=== PATIENT | male | born 1960 | race Caucasian/White ===

== ENCOUNTER 2024-05-19 08:22 | Inpatient (IN) | payer BC, SELFPAY ==
[2024-05-19] VITALS (12 sets, daily range): BP systolic 135–213; BP diastolic 72–111; BMI 26.6
[2024-05-19 05:19] LABS: % Basophils 0.3 % (0-2); % Immature Granulocytes 0.3 % (0-0.5); % Lymphocytes 14.4 % (20.5-51.1); % Monocytes 12.6 % (1.7-9.3); % Neutrophils 69.4 % (42.2-75.2); Absolute Eosinophils 0.3 10^3/uL (0-0.7); Absolute Lymphocytes 1.3 10^3/uL (1.2-3.4); Absolute Monocytes 1.1 10^3/uL (0.1-0.6); Absolute Neutrophils 6.1 10^3/uL (1.4-6.5); Hematocrit 43.7 % (39.0-52.0); Hemoglobin 15.7 g/dL (13.0-18.0); Mean Corp Hgb Conc. 35.9 g/dL (33.0-37.0); Mean Corpuscular Hgb 30.5 pg (27.0-31.0); Mean Corpuscular Volume 84.9 fL (80.0-94.0); Mean Platelet Volume 9.3 fL (7.4-10.4); Nucleated Red Blood Cells % 0 % (-); Platelet Count 335 10^3/uL (130-400); Red Blood Cell Count 5.15 10^6/uL (4.70-6.10); Red Cell Dist. Width 12.6 % (11.5-14.5); White Blood Cell Count 8.8 10^3/uL (4.8-10.8)
--- NOTE | 2024-05-19 05:29 | ED.GENMED ---
History of Present Illness
<Devan Holbrook DO - Last Filed: 05/27/24 12:54>
General
Chief Complaint: Chest Pain
Source: patient
Exam Limitations: none
Time Seen by Provider: 05/19/24 05:09
History of Present Illness
History of Present Illness:
63-year-old male with history of hypertension who presents with concerns about his blood pressure being elevated as well as chest pain. He states chest pain started around 7 PM. He first hours of abdominal pain through the day but felt it was
related to drinking root beer that was out in the sun all day. His chest pain he states he has had for many years but this episodes around 7 PM. The pain seems to be constant but does seem to wax and wane a bit. The patient also reports that he
has been checking his blood pressure at home and has been high as 240 systolic. Patient states he checks it almost every hour. The pain does not radiate at all and states that his left chest. Denies shortness of breath. No palpitations. No leg
swelling. No headache or vision changes. His PCP recently started hydrochlorothiazide but then added losartan about a week ago but he has not filled it because he is scared of taking medicines. He has been trying more natural remedies and has not
taken the losartan.
Past History
<DO Julia Bran Last Filed: 05/27/24 12:54>
Past History
ED Past Medical History: HTN
ED Past Surgical History: Orthopedic
Phy Exam
<Devan Holbrook DO - Last Filed: 05/27/24 12:54>
Physical Exam
Physical Exam:
CONSTITUTIONAL Patient alert and oriented to person, place and time. Well-appearing. Vital signs reviewed. Blood pressure 189/111 on exam
HEAD atraumatic, normocephalic.
EYES eyelids normal to inspection, Pupils equally round and reactive to light, Extraocular muscles intact, Conjunctiva normal, Sclera normal.
NECK normal range of motion, Trachea midline, no jugular venous distention.
RESPIRATORY CHEST No respiratory distress noted, Chest expansion equal, Bilateral breath sounds clear.
CARDIOVASCULAR regular rate and rhythm, Heart sounds normal.
ABDOMEN abdomen nontender, Bowel sounds normal. No distention.
BACK normal inspection, no obvious deformities
UPPER EXTREMITY range of motion normal, Motor strength normal, no cyanosis, no edema.
LOWER EXTREMITY range of motion normal, Motor strength normal, no cyanosis, no edema.
NEURO Speech normal, No focal motor deficits, [place] coma scale 15, Memory normal, Cranial Nerves intact to screening exam.
SKIN skin warm, dry, and normal in color.
PSYCHIATRIC patient oriented to person place and time, Normal affect.
Scores
<DO Julia Bran Last Filed: 05/27/24 12:54>
Heart Score for Chest Pain Patients
STEMI patient?: Not applicable
Course
<DO Julia Bran Last Filed: 05/27/24 12:54>
Orders/Labs/Results
Orders:
Orders
05/19/24 04:44
Electrocardiogram (*1) Urgent
Reason for Study: Chest Pain
EKG- Treatment ONCE
05/19/24 05:06
Cardiac Monitoring- Treatment ONCE
IV Insert/Care/Rem.- Treatment PRN
05/19/24 05:10
Complete Blood Count/With Diff Urgent
Comprehensive Metabolic Panel Urgent
Direct Bilirubin Urgent
Comment: ADD
Lipase Urgent
Comment: ADD ON
Troponin I Urgent
05/19/24 05:28
Labetalol HCl [Trandate] 10 mg IV NOW STA
CR Chest - 2 Views Urgent
Comment:
Reason For Exam: cp, HTN
05/19/24 05:32
Electrocardiogram (*1) Urgent
Reason for Study: Chest Pain
EKG- Treatment ONCE
05/19/24 05:36
CT Abd/pelvis W Iv Cont Urgent
Comment:
Reason For Exam: mid abd pain, uncontrolled HTN, elevated LFTs
05/19/24 05:56
Labetalol [Trandate] 100 mg PO NOW STA
05/19/24 06:38
Add On- LAB Urgent
Tests Added?: lipase
05/19/24 07:53
Admit/Transfer Patient As Directed
Co-Sign Provider:
Level of Care: Inpatient admission
Assign to:: Telemetry
Physician / Group: Dr Bernal
Diagnosis: choledocholithiasis and htn urgency
Reason for Telemetry: Arrhythmia
Date to Stop Telemetry: 05/22/24
Time to Stop Telemetry: 11:00
Reason for Hospitalization: pte p/w abd pain and elevated lft and uncontrolled htn
Expected length of stay greater than two midnights?: Yes
ELOS- Estimated Length of Stay in days: 2
I certify the patient meets the requirements for IP care: Yes
PRN Pain Medication Management As Directed
May give lesser potent ordered pain med per pt: Yes
preference::
Protocol:: Medication orders for pain may be administered in a
manner that supports deferring to patient preference
when the pt is:
- Requesting an ordered lesser potent pain medication.
Least to most potent pain medications are defined
as: acetaminophen < NSAID < tramadol < opioids
(morphine, oxycodone, hydromorphone).
- Requesting a lesser dose of the same medication IF
ORDERED.
- Requesting a less intrusive route of administration
if both routes are prescribed by the provider (PO <
IV).
05/19/24 07:55
Code Status As Directed
Resuscitation Status: Full Code
05/19/24 08:01
GASTROINTESTINAL CONSULT Routine
Consulting Provider: Arturo Sofia
Was physician already notified: Yes
Reason for consult: Elevated LFT
05/19/24 08:56
Troponin I Urgent
05/19/24 09:05
0.9% Sodium Chloride 1000 ml [Nss] 1,000 ml IV 75 mls/hr
Amlodipine [Norvasc] 5 mg PO DAILY
Bisacodyl [Dulcolax] 10 mg RECTAL [id number] PRN
Docusate W/Senna [Senokot-S] 1 tablet PO BIDPRN PRN
Famotidine [Pepcid] 20 mg PO DAILY
HydrALAZINE [Apresoline] 10 mg IV Q6HPRN PRN
Ketorolac [Toradol] 10 mg IV Q6HPRN PRN
Polyethylene Glycol Powder [Miralax] 17 grams PO DAILYPRN PRN
05/19/24 09:05
Activity As Directed
Activity Level: Out of Bed-Early Mobility
Vital Signs As Directed
Frequency: Per unit guidelines
DX Deep Vein Thrombosis Video Routine
05/19/24 18:00
Enoxaparin Sodium [Lovenox] 40 mg SC QPM
05/20/24 06:21
Complete Blood Count/With Diff IN AM
Comprehensive Metabolic Panel IN AM
05/22/24 11:00
DC Protocol for Telemetry ONCE
Abnormal Lab Results
05/19/24
05:10
Absolute Monos (auto) 1.1 H 10^3/uL
(0.1-0.6)
Lymphocytes % 14.4 L %
(20.5-51.1)
Monocytes % 12.6 H %
(1.7-9.3)
Glucose 126 H mg/dl
(70-99)
Total Bilirubin 3.6 H mg/dl
(0.2-1.3)
Direct Bilirubin 2.2 H mg/dl
(0.0-0.4)
AST 296 H U/L
(17-59)
ALT 306 H U/L
(0-50)
Alkaline Phosphatase 150 H U/L
(38-126)
05/19/24 05:10
05/19/24 05:10
Vital Signs
Initial and Last Documented VS:
Initial Vital Signs
Temp Pulse Resp BP Pulse Ox
98.1 F 83 16 213/105 99
05/19/24 04:52 05/19/24 04:52 05/19/24 04:52 05/19/24 04:52 05/19/24 04:52
Last Documented Vital Signs
Temp Pulse Resp BP Pulse Ox
97.9 F 83 18 117/80 99
05/22/24 11:30 05/22/24 12:39 05/22/24 11:30 05/22/24 12:39 05/22/24 11:30
<Scott Hernandez MD - Last Filed: 05/19/24 07:24>
Orders/Labs/Results
Orders:
Orders
05/19/24 04:44
Electrocardiogram (*1) Urgent
Reason for Study: Chest Pain
EKG- Treatment ONCE
05/19/24 05:06
Cardiac Monitoring- Treatment ONCE
IV Insert/Care/Rem.- Treatment PRN
05/19/24 05:10
Complete Blood Count/With Diff Urgent
Comprehensive Metabolic Panel Urgent
Direct Bilirubin Urgent
Comment: ADD
Lipase Urgent
Comment: ADD ON
Troponin I Urgent
05/19/24 05:28
Labetalol HCl [Trandate] 10 mg IV NOW STA
CR Chest - 2 Views Urgent
Comment:
Reason For Exam: cp, HTN
05/19/24 05:32
Electrocardiogram (*1) Urgent
Reason for Study: Chest Pain
EKG- Treatment ONCE
05/19/24 05:36
CT Abd/pelvis W Iv Cont Urgent
Comment:
Reason For Exam: mid abd pain, uncontrolled HTN, elevated LFTs
05/19/24 05:56
Labetalol [Trandate] 100 mg PO NOW STA
05/19/24 06:38
Add On- LAB Urgent
Tests Added?: lipase
05/19/24 07:53
Admit/Transfer Patient As Directed
Co-Sign Provider:
Level of Care: Inpatient admission
Assign to:: Telemetry
Physician / Group: Dr Bernal
Diagnosis: choledocholithiasis and htn urgency
Reason for Telemetry: Arrhythmia
Date to Stop Telemetry: 05/22/24
Time to Stop Telemetry: 11:00
Reason for Hospitalization: pte p/w abd pain and elevated lft and uncontrolled htn
Expected length of stay greater than two midnights?: Yes
ELOS- Estimated Length of Stay in days: 2
I certify the patient meets the requirements for IP care: Yes
PRN Pain Medication Management As Directed
May give lesser potent ordered pain med per pt: Yes
preference::
Protocol:: Medication orders for pain may be administered in a
manner that supports deferring to patient preference
when the pt is:
- Requesting an ordered lesser potent pain medication.
Least to most potent pain medications are defined
as: acetaminophen < NSAID < tramadol < opioids
(morphine, oxycodone, hydromorphone).
- Requesting a lesser dose of the same medication IF
ORDERED.
- Requesting a less intrusive route of administration
if both routes are prescribed by the provider (PO <
IV).
05/19/24 07:55
Code Status As Directed
Resuscitation Status: Full Code
05/19/24 08:01
GASTROINTESTINAL CONSULT Routine
Consulting Provider: Protano,Pat-Julissa
Was physician already notified: Yes
Reason for consult: Elevated LFT
05/19/24 08:56
Troponin I Urgent
05/19/24 09:05
0.9% Sodium Chloride 1000 ml [Nss] 1,000 ml IV 75 mls/hr
Amlodipine [Norvasc] 5 mg PO DAILY
Bisacodyl [Dulcolax] 10 mg RECTAL [id number] PRN
Docusate W/Senna [Senokot-S] 1 tablet PO BIDPRN PRN
Famotidine [Pepcid] 20 mg PO DAILY
HydrALAZINE [Apresoline] 10 mg IV Q6HPRN PRN
Ketorolac [Toradol] 10 mg IV Q6HPRN PRN
Polyethylene Glycol Powder [Miralax] 17 grams PO DAILYPRN PRN
05/19/24 09:05
Activity As Directed
Activity Level: Out of Bed-Early Mobility
Vital Signs As Directed
Frequency: Per unit guidelines
DX Deep Vein Thrombosis Video Routine
05/19/24 18:00
Enoxaparin Sodium [Lovenox] 40 mg SC QPM
05/20/24 06:21
Complete Blood Count/With Diff IN AM
Comprehensive Metabolic Panel IN AM
05/22/24 11:00
DC Protocol for Telemetry ONCE
Abnormal Lab Results
05/19/24
05:10
Absolute Monos (auto) 1.1 H 10^3/uL
(0.1-0.6)
Lymphocytes % 14.4 L %
(20.5-51.1)
Monocytes % 12.6 H %
(1.7-9.3)
Glucose 126 H mg/dl
(70-99)
Total Bilirubin 3.6 H mg/dl
(0.2-1.3)
Direct Bilirubin 2.2 H mg/dl
(0.0-0.4)
AST 296 H U/L
(17-59)
ALT 306 H U/L
(0-50)
Alkaline Phosphatase 150 H U/L
(38-126)
05/19/24 05:10
05/19/24 05:10
Vital Signs
Initial and Last Documented VS:
Initial Vital Signs
Temp Pulse Resp BP Pulse Ox
98.1 F 83 16 213/105 99
05/19/24 04:52 05/19/24 04:52 05/19/24 04:52 05/19/24 04:52 05/19/24 04:52
Last Documented Vital Signs
Temp Pulse Resp BP Pulse Ox
97.9 F 83 18 117/80 99
05/22/24 11:30 05/22/24 12:39 05/22/24 11:30 05/22/24 12:39 05/22/24 11:30
<Devan Holbrook DO - Last Filed: 05/27/24 12:54>
MDM/Problems Addressed
MDM/Problems Addressed:
Acute hypertensive urgency, chest pain, cholelithiasis
<Devan Holbrook DO - Last Filed: 05/27/24 12:54>
*Radiology
Radiology exam reviewed: preliminary read by ED provider (Stones noted in the gallbladder)
*Pulse Oximetry
Patient hypoxic: no
*EKG
Interpreted by ED Provider?: Yes
Interpretation: abnormal
Rate: normal
Rhythm: sinus and PVC's
Interval: normal interval
QRS Pattern: normal QRS
Ischemia: no ischemia
*[facility] [employer] Interpretation
Rate: normal
Interpretation: normal
Rhythm: sinus
*Critical Care Note
Total Time (30-74mins, 75-104mins- exclusive of procedures): Not Applicable
Data Reviewed
Source: patient
<Devan Holbrook DO - Last Filed: 05/27/24 12:54>
Patient Management
Escalation/DeEscalation of care consider admission/obs:
Blood pressure improved. Troponin negative and EKG is unremarkable. Suspect the epigastric pain related to biliary disease. Await CT imaging. Lipase pending. Anticipate admission
<Scott Hernandez MD - Last Filed: 05/19/24 07:24>
Update Note
Update Note:
UPDATE (Scott Hernandez MD)
I have seen and evaluated patient after signout and reviewed all labs and imaging.
Focused HPI: 63-year-old male with history of hypertension presents with epigastric pain.
Physical exam: Awake alert not in distress. Hypertensive. Marginal epigastric tenderness.
Medical Decision Making: Patient had labs including a CBC and a CMP�labs are significant for elevated T. bili, elevated transaminases. Troponin negative. Chest x-ray no acute disease. CT pending. Concern for choledocholithiasis.
CT report reviewed�positive for cholelithiasis, no signs of acute cholecystitis. Clinical concern at this point for choledocholithiasis. Also has left hydronephrosis of unclear etiology�no clear obstruction noted on CT. Will admit for continued
evaluation. Case discussed with hospitalist.
ED Attending Note
<Devan Holbrook DO - Last Filed: 05/27/24 12:54>
-
Portions of this chart may have been created with voice recognition software.� Occasional wrong word or��sound alike� substitutions may have occurred due to the inherent limitations of voice recognition software.
Discharge Plan
Departure
Patient Disposition: Admit
Date of Disposition: 05/19/24
Time of Disposition: 07:18
Admit to doctor: Eliu
Presentation/result/management discussed w/ accepting MD/DO: Hospitalist
Discharge Problem:
Choledocholithiasis, Hypertensive urgency
Interventions
Interventions:
*Risk Screen - Suicide Last Done: 05/19/24 05:20
*General Assessment Last Done: 05/19/24 05:20
*Neglect/Abuse Screening Last Done: 05/19/24 05:20
ED- Fall Risk Assessment Last Done: 05/19/24 05:20
*ED COVID-19 Vaccine History Last Done: 05/19/24 05:20
*Nursing Disposition Last Done: 05/19/24 09:00
ED- Cardiac Assessment Last Done: 05/19/24 05:20
Discharge Date and Time
Discharge Date/Time: 05/19/24 09:00
[2024-05-19 05:33] LABS: ALT (SGPT) 306 U/L (0-50); AST (SGOT) 296 U/L (17-59); Albumin 4.8 g/dl (3.5-5.0); Alkaline Phosphatase 150 U/L (38-126); Blood Urea Nitrogen 14 mg/dl (9-20); Calcium 10.1 mg/dl (8.4-10.2); Carbon Dioxide 28 mmol/L (22-30); Chloride 100 mmol/L (98-107); Estimated Creatinine Clearance 61 ml/min; Glucose 126 mg/dl (70-99); Potassium 3.8 mmol/L (3.5-5.1); Sodium 140 mmol/L (135-145); Total Bilirubin 3.6 mg/dl (0.2-1.3); Total Protein 7.5 g/dl (6.3-8.2); eGFR > 60.00
[2024-05-19] MEDS: TRANDATE 10 MG IV (05:34)
[2024-05-19 05:45] LABS: Troponin I < 0.012 ng/ml
[2024-05-19] MEDS: TRANDATE 100 MG PO (06:33)
[2024-05-19 07:21] LABS: Lipase 298 U/L (23-300)
--- NOTE | 2024-05-19 08:01 | HPS.HSE ---
Addendum entered and electronically signed by Jarrett Bernal MD 05/19/24 15:35:
Correction-->Absence of right kidney not abscess.
Original Note:
Family Physician
-
Family Physician: ILYA Weston
Chief Complaint
-
Abdominal pain
History of Present Illness
Patient is 63 years old male with history of hypertension, headaches, came into the hospital with abdominal pain. Patient states that he started having abdominal pain since last evening at 7 PM, described as sharp pain, moderate to severe
intensity, epigastric and radiates to his chest and down to his mid abdomen, associated with nausea and vomiting. He denies any fevers or chills. Denies dysphagia odynophagia. Denies diarrhea or constipation. Denies dysuria urgency or frequency.
Denies heavy alcohol use. Has used cannabinoids recently. In the ER, he had a CT scan of the abdomen that shows absence of right kidney and severe left hydroureteronephrosis and also cholelithiasis but no gallbladder thickening to suggest acute
cholecystitis. His LFTs were noticed to be elevated. He was also noticed to be significantly hypertensive. He was referred to hospitalist service for further evaluation.
Medical History
Past Medical History
Past Medical History: Reports Other (Hypertension, headaches.)
Past Surgical History: Reports Other (Right ACL repair.)
Social History
Tobacco: Non-smoker
Alcohol: None
Drug: None
Family History
Family History: Not pertinent
Allergies / Home Medications
Allergies reflects when Allergies were last updated in [facility].
Home Medications with original date entered in [facility]
Allergy/Medication List:
Allergies
Allergy/AdvReac Type Severity Reaction Status Date / Time
No Known Allergies Allergy Unverified 05/19/24 04:49
Review of Systems
-
A 12 point ROS was completed and negative except as noted: Yes
Physical Exam
Vital Signs
Vital Signs
Temp Pulse Resp BP Pulse Ox
98.1 F 69 13 172/85 97
05/19/24 04:52 05/19/24 07:00 05/19/24 07:00 05/19/24 07:00 05/19/24 07:00
Physical exam:
General: Acutely ill. Nontoxic
HEENT: Normocephalic, Atraumatic and Moist Mucous Membranes
Respiratory: Clear to Auscultation; Negative Wheezes, Rales or Rhonchi
Cardiac: Regular Rhythm and S1/S2
GI: Soft, Tender in epigastric area and diffuse and Nondistended
Musculoskeletal: No Clubbing, No Cyanosis and No Edema
Neuro: Awake, Alert and Oriented
Psych: Calm
Physical Exam
General: Other
Laboratory Results
-
05/19/24 05:10
05/19/24 05:10
Laboratory Results
Total Bilirubin 3.6 mg/dl (0.2-1.3) H 05/19/24 05:10
AST 296 U/L (17-59) H 05/19/24 05:10
ALT 306 U/L (0-50) H 05/19/24 05:10
Alkaline Phosphatase 150 U/L (38-126) H 05/19/24 05:10
Troponin I < 0.012 ng/ml 05/19/24 05:10
Lipase 298 U/L (23-300) 05/19/24 05:10
Data Reviewed
-
CT Scan: Image Personally Visualized and interpreted
Lab Data: Labs Reviewed by me
Impression/Plan
-
IMPRESSION:
Patient is 63 years old male with history of hypertension presented to the hospital abdominal pain and elevated liver function test. Also found to have hypertensive urgency. Patient is abdominal pain of unclear etiology but given increased LFTs
concerns for choledocholithiasis or other etiologies. Patient at risk of increased morbidity mortality therefore will need to be treated in the hospital and manage accordingly.
PLAN:
Abdominal pain with elevated LFTs, concerns for choledocholithiasis and could have symptomatic cholelithiasis:
No clear evidence of cholangitis or cholecystitis for that matter-hold off on antibiotics for now.
Clear liquid diet
IV fluids
Pain control
H2 magda
Might benefit from MRCP but will defer to GI if needed
GI consult for further evaluation-discussed with GI in person and via [place] text
Hypertensive emergency:
He has not been compliant with his antihypertensive regimen
Will start him on losartan 50 mg daily and hydrochlorothiazide 25 mg p.o. daily
Monitor renal function and electrolytes
Will use IV hydralazine as needed
Will also check cardiac enzymes 2 sets
Troponin normal less than 0.012 first one
Twelve-lead EKG normal sinus rhythm at [address]-T changes concerning for ischemia or pathological Q waves.
Chest x-ray no acute chest pathology.
Will keep him on cardiac monitoring for now
Left severe hydroureteronephrosis and abscess of right kidney:
I do not believe these findings are related to his presentation
Interesting he did not know he had solitary kidney so probably a congenital abnormality.
Urology consult given findings of hydronephrosis
Will obtain a UA and urine culture if indicated but low suspicion for urinary source of his presentation
Headaches:
Monitor for symptoms
DVT prophylaxis:
Lovenox SQ
CODE STATUS:
Full code
Time spent 75 minutes
--- NOTE | 2024-05-19 09:00 | TRANSFER ---
Received patient from ED via stretcher. Patient got up off of stretcher with no assistance and steady gait. Pt immediately went to restroom with nausea and emesis. Pt c/o 10/10 headache and abdominal pain. Bp 185/101 HR 76. PRN hydralazine,
Toradol, and Zorac given IV as per order. All orders reviewed and acknowledged. Plan of care discussed with patient and spouse. Bed in low position with call montes within reach. will continue to monitor.
--- NOTE | 2024-05-19 09:14 | CON.GI ---
Addendum entered and electronically signed by Arturo Sofia MD 05/19/24 13:33:
I saw and examined the patient.
The PHARMACY TECHNOLOGY INSTRUCTOR or PA's note was reviewed and I agree with the note.
Comment: 63-year-old male presenting with chest pain, abdominal pain and hypertension found to have elevated bilirubin of 3.6 with direct bilirubin of 2.2, AST 296, ALT 306, alk phos 150. He also does have some diffuse abdominal pain with the chest
pain. He gets his episodes of nausea, sweating, dizziness for the last few years up to 3 times a week. He is currently very nauseous now. He denies any fevers. Denies alcohol. Previously was using marijuana until very recently did not want to
quantify last use. No other drugs. He underwent a CT scan gallstones including in the neck of the pancreas. No evident biliary ductal dilation seen.
At this time, recommend MRI/MRCP for further evaluation for possible choledocholithiasis. Plan to trend LFTs. Suspect will benefit from eventual surgery consult as well. No evidence of infection with normal white blood cell count and no fevers.
Urology has seen the patient regarding the urologic findings on CT and no intervention needed at this time.
Case discussed with hospitalist.
Original Note:
Consultation
-
Date/Time Consultation Requested: 05/19/24
Date/Time Consultation Performed: 05/19/24 @ 09:15
Requesting Provider: Dr. Bernal
Performing Provider: ILYA Dumas; Dr. Pat Sofia
Reason for Consultation: Elevated LFT
Medical History
Chief Complaint / HPI
Chief Complaint: chest pain, elevated BP
History of Present Illness:
The patient is a 63-year-old male with a past medical history significant for hypertension, who presented initially to the emergency room with complaints of chest pain and elevated blood pressure. We are being asked to evaluate for abnormal LFTs.
The patient reports that yesterday at 7 PM he developed severe pain in his chest. He reports this radiated down into his abdomen, described as a tightness. He reports that the pain continued despite use of Tylenol. He had been taking this more
regularly for his headaches taking 2 tablets daily for the past week. He reports that at home he was having nausea but did not have any vomiting until arriving at the hospital. He does have high blood pressure and had not seen a doctor until
recently where he was started on antihypertensive medications although he had not started them (was taking hydrochlorothiazide, but had not started on losartan as directed). He notes that he does get headaches and nausea with vomiting when his
blood pressure is high. He also reports that the day prior he had drank a root beer that had been sitting out and feels this started his GI symptoms. He denies any prior similar abdominal pain in the past. He denies any unintentional weight loss
or loss of appetite. He otherwise denies any dysphagia, odynophagia, reflux, diarrhea, constipation, early satiety. He denies any back pain. He denies any history of gallbladder disease. He denies any family history of GI cancers or disorders.
Denies any prior hospitalizations. He denies any alcohol use or drug use.
Routine labs on admission showed WBC 8.8, hemoglobin 15.7, platelets 335,000, sodium 140, potassium 3.8, BUN 14, creatinine 1.3, glucose 126, total bilirubin 3.6, AST 296, ALT 306, alk phos 150, lipase 298, albumin 4.8, troponin negative x 1.
Chest x-ray showing no acute cardiopulmonary process. CT of the abdomen and pelvis with IV contrast showed cholelithiasis with gallstones in the neck of the gallbladder approaching cystic duct with no gallbladder wall thickening or evidence to
suggest acute cholecystitis. No evident biliary ductal dilation was seen. Also seen moderate to severe left hydroureteronephrosis with distal ureteral abrupt change in caliber just proximal to the ureterovesicular junction. His blood pressure in
the emergency room was significantly elevated 200's/100's. He received IV labetalol with gradual improvement although still elevated at 172/85. He was placed on clear liquid diet and admitted for further evaluation by GI.
Past Medical History
Past Medical History: HTN and Other (Headaches, torn right ACL)
Past Surgical History: Orthopedic
Social History
Tobacco: Non-Smoker
Alcohol: None
Drug: None
Family History
Family History: Reviewed & Not Pertinent
Allergies / Home Medications
Allergy/AdvReac Type Severity Reaction Status Date / Time
No Known Allergies Allergy Unverified 05/19/24 04:49
Review of Systems
-
History Source: Patient
Constitutional: Reports Chills
EENT: Reports No Symptoms
Respiratory: Reports No Symptoms
Cardiac: Reports Chest Pain
Abdomen/GI: Reports Abdominal Pain, Nausea and Vomiting
: Reports No Symptoms
Musculoskeletal: Reports No Symptoms
Skin: Reports No Symptoms
Neurological: Reports Headache
Endocrine: Reports No Symptoms
Hematologic/Lymphatic: Reports No Symptoms
Vital Signs
Temp Pulse Resp BP Pulse Ox
98.1 F 69 13 172/85 97
05/19/24 04:52 05/19/24 07:00 05/19/24 07:00 05/19/24 07:00 05/19/24 07:00
Physical Exam
Exam
General: Well Nourished, Poor Appetite and Other (Ill-appearing, secondary to vomiting)
HEENT: Normocephalic and Atraumatic
Respiratory: Clear
Cardiac: S1/S2 and Regular Rhythm
Breast: N/A
GI: Soft, Non Distended, Normal Bowel Sounds and Tender
Rectal: Deferred by Provider
Musculoskeletal: No Edema
Skin: Warm and Dry
Neuro: Awake and Alert
Psych: Other (Restless secondary to pain)
Results
WBC 8.8 10^3/uL (4.8-10.8) 05/19/24 05:10
Hgb 15.7 g/dL (13.0-18.0) 05/19/24 05:10
Hct 43.7 % (39.0-52.0) 05/19/24 05:10
MCV 84.9 fL (80.0-94.0) 05/19/24 05:10
Plt Count 335 10^3/uL (130-400) 05/19/24 05:10
Absolute Neuts (auto) 6.1 10^3/uL (1.4-6.5) 05/19/24 05:10
Sodium 140 mmol/L (135-145) 05/19/24 05:10
Potassium 3.8 mmol/L (3.5-5.1) 05/19/24 05:10
Chloride 100 mmol/L (98-107) 05/19/24 05:10
Carbon Dioxide 28 mmol/L (22-30) 05/19/24 05:10
BUN 14 mg/dl (9-20) 05/19/24 05:10
Creatinine 1.3 mg/dL (0.7-1.3) 05/19/24 05:10
Calcium 10.1 mg/dl (8.4-10.2) 05/19/24 05:10
Total Bilirubin 3.6 mg/dl (0.2-1.3) H 05/19/24 05:10
AST 296 U/L (17-59) H 05/19/24 05:10
ALT 306 U/L (0-50) H 05/19/24 05:10
Alkaline Phosphatase 150 U/L (38-126) H 05/19/24 05:10
Lipase 298 U/L (23-300) 05/19/24 05:10
Diagnostic Image Results:
05/19/24 Ct A/P w/IV contrast: IMPRESSION: Gallbladder: Cholelithiasis. Gallstones within the gallbladder neck and approaching the cystic duct. No gallbladder wall thickening or evidence to suggest acute cholecystitis. Bile Ducts: No bile duct
dilatation. Pancreas: Within normal limits. Spleen: Normal in size. Adrenals: Mild left adrenal gland thickening. No dominant adrenal mass, bilaterally. Moderate to severe left hydroureteronephrosis. Distal ureteral abrupt change in caliber just
proximal to the ureterovesical junction. No definitive calculus is identified. There is a left ureteral jet, therefore, no complete obstruction. Possible considerations include may include wall edema with stenosis related to recently passed
calculus, or postinflammatory or neoplastic stenosis. The right kidney is absent. No bladder calculus. Mild urinary bladder wall thickening. Possible cystitis. Clinical correlation recommended. Cholelithiasis.
Prior GI Procedures:
EGD: none on file
Colonoscopy: none on file
Assessment / Plan
-
The patient is a 63-year-old male with a past medical history significant for hypertension, who presented initially to the emergency room with complaints of chest pain and elevated blood pressure. We are being asked to evaluate for abnormal LFTs,
with concern for possible choledocholithiasis with gallstone seen on CT. He reports acute onset of chest pain and abdominal pain yesterday around 7 PM. He attributes the abdominal pain secondary to drinking an old root beer, but continued with
ongoing symptoms. CT as below also showing urological abnormalities with moderate to severe left hydroureteronephrosis. His LFTs are elevated as well with a total bilirubin 3.6, AST 296, ALT 306, alk phos 150. Troponin negative x 2. Lipase was
normal. CT did not show any biliary ductal abnormalities. He continues with ongoing pain, now with nausea and vomiting which he attributes to his headaches when he has high blood pressure. IV labetalol and IV hydralazine are being utilized for
management of his hypertensive urgency. He reports that he has not followed with a doctor in many years up until recently. He denies any alcohol use or history of liver disease.
CT A/P w/IV contrast: IMPRESSION: Gallbladder: Cholelithiasis. Gallstones within the gallbladder neck and approaching the cystic duct. No gallbladder wall thickening or evidence to suggest acute cholecystitis. Bile Ducts: No bile duct dilatation.
Pancreas: Within normal limits. Spleen: Normal in size. Adrenals: Mild left adrenal gland thickening. No dominant adrenal mass, bilaterally. Moderate to severe left hydroureteronephrosis. Distal ureteral abrupt change in caliber just proximal to the
ureterovesical junction. No definitive calculus is identified. There is a left ureteral jet, therefore, no complete obstruction. Possible considerations include may include wall edema with stenosis related to recently passed calculus, or
postinflammatory or neoplastic stenosis. The right kidney is absent. No bladder calculus. Mild urinary bladder wall thickening. Possible cystitis. Clinical correlation recommended. Cholelithiasis.
Problem list:
-abnormal LFT's
-chest pain, troponin negative
-abdominal pain
-CT showing gallstones,
-Hypertensive urgency moderate to severe left hydroureteronephrosis, absent right kidney
-Nausea/vomiting
-Headaches
Recommendations:
-Etiology of current symptoms possibly multifactorial given presence of gallstones consider choledocholithiasis given elevated LFTs versus neurological cause with moderate to severe left hydroureteronephrosis on CT versus other.
--- His nausea and vomiting is likely exacerbated secondary to his headaches with his severe hypertension
-At this time would recommend MRI with MRCP for further evaluation when he is able to tolerate this to rule out choledocholithiasis.
-If MRCP is positive he will need ERCP
-Keep NPO for now, may trial sips of clears when his vomiting improves
-PRN antiemetics ordered by hospitalist
-Will check hepatitis serologies
-Continue to trend LFTs. Add direct bilirubin.
-Would consider urology evaluation given CT findings
-BP management as per hospitalist
-Could consider brain imaging given his headaches and vomiting although likely secondary to his uncontrolled hypertension. Defer to hospital
-Further management pending above
Data Reviewed
-
CT Scan: Report Reviewed by me and Discussed with Physician
-
-
Thank you for consultation and allowing me to participate in the patient's care. Please call the sale professional digital marketing GI physician during the after hours with any questions or concerns.
[2024-05-19] MEDS: APRESOLINE 10 MG IV ×2 (09:27→16:06)
[2024-05-19] MEDS: TORADOL 10 MG IV ×2 (09:28→15:22)
[2024-05-19] MEDS: ZOFRAN 4 MG IV ×2 (09:29→15:24)
[2024-05-19] MEDS: NSS 1000 IV ×2 (09:29→23:06)
[2024-05-19 09:31] LABS: Troponin I < 0.012 ng/ml
[2024-05-19 09:52] LABS: Direct Bilirubin 2.2 mg/dl (0.0-0.4)
[2024-05-19] MEDS: ORETIC PO (10:00)
[2024-05-19] MEDS: COZAAR PO (10:00)
--- NOTE | 2024-05-19 12:24 | W.PN.URO.CBU ---
Today's Communication / Plan
-
send urine for u/a and cx
Assessment / Plan
-
incidental finding left hydro and absent rt juan ramon [ pt was unaware ] asx creatinie wnl has lef uretal jet and prompt uptake and excretion i non obstructive urie from soltary left kidney will observe
Diagnosis
-
Date of Service: May 19, 2024
-
Patient Diagnosis:unknown tiology chestand ruq pain incidenatlfidings of congenitally absent rt kidney and asx left hydo with nl creatinine
Post Op Day:
Subjective
-
no gu complaints
Objective
-
Vital Signs
Temp Pulse Resp BP Pulse Ox
97.8 F 83 18 150/77 99
05/19/24 09:53 05/19/24 09:53 05/19/24 09:53 05/19/24 09:53 05/19/24 09:53
Laboratory Results
05/19/24 05:10
05/19/24 05:10
Review of Systems
-
Cardiac: Chest Pain
Abdomen/GI: Abdominal Pain
: No Symptoms
Physical Exam
-
General - well developed, well nourished, no acute distress
Chest - clear bilaterally
Abdomen - soft, non-tender, positive bowel sounds, no CVAT, no incisional pain or distention
Genitalia - normal
Rectal - normal
Skin - warm & dry with no rash
Neuro - AOx3, no motor deficits
Extremities - no clubbing, no cyanosis, no edema
Incision - clean, dry
Dressing - clean, dry, intact
Care Review
Data Reviewed
Discussed with: Nursing
CT Scan: Image Pers Reviewed
[2024-05-19] MEDS: PEPCID PO (12:25)
[2024-05-19] MEDS: COMPAZINE 10 MG IV (15:47)
[2024-05-19 16:14] LABS: Urine Albumin Trace (Neg - Trace); Urine Bilirubin 1+ (Negative); Urine Character Clear (Clear); Urine Color Yellow; Urine Glucose Negative (Negative); Urine Ketone Negative (Negative); Urine Leukocyte Negative (Negative); Urine Nitrite Negative (Negative); Urine Occult Blood Negative (Negative); Urine Specific Gravity 1.005 (<1.030); Urine Urobilinogen 1+ (Neg - 1+)
[2024-05-19] MEDS: LOVENOX 40 MG SC (16:59)
[2024-05-20 03:00] VITALS: BP 177/91
[2024-05-20] MEDS: ZOFRAN 4 MG IV ×3 (03:14→23:23)
[2024-05-20] MEDS: APRESOLINE 10 MG IV ×2 (03:16→23:22)
[2024-05-20] MEDS: TORADOL 10 MG IV ×2 (03:19→13:48)
[2024-05-20 06:37] VITALS: BP 173/92
[2024-05-20 07:05] LABS: % Basophils 0.3 % (0-2); % Eosinophils 0.6 % (0-6); % Immature Granulocytes 0.5 % (0-0.5); % Lymphocytes 12.3 % (20.5-51.1); % Monocytes 7.4 % (1.7-9.3); % Neutrophils 78.9 % (42.2-75.2); Absolute Eosinophils 0.1 10^3/uL (0-0.7); Absolute Immature Granulocytes 0.1 10^3/uL (0-0.05); Absolute Lymphocytes 1.4 10^3/uL (1.2-3.4); Absolute Monocytes 0.9 10^3/uL (0.1-0.6); Hematocrit 41.1 % (39.0-52.0); Hemoglobin 14.5 g/dL (13.0-18.0); Mean Corp Hgb Conc. 35.3 g/dL (33.0-37.0); Mean Corpuscular Hgb 30.4 pg (27.0-31.0); Mean Corpuscular Volume 86.2 fL (80.0-94.0); Mean Platelet Volume 9.5 fL (7.4-10.4); Nucleated Red Blood Cells % 0 % (-); Platelet Count 363 10^3/uL (130-400); Red Blood Cell Count 4.77 10^6/uL (4.70-6.10); Red Cell Dist. Width 13.1 % (11.5-14.5); White Blood Cell Count 11.5 10^3/uL (4.8-10.8)
[2024-05-20 07:33] LABS: ALT (SGPT) 202 U/L (0-50); AST (SGOT) 78 U/L (17-59); Albumin 4.1 g/dl (3.5-5.0); Alkaline Phosphatase 135 U/L (38-126); Blood Urea Nitrogen 18 mg/dl (9-20); Calcium 9.4 mg/dl (8.4-10.2); Carbon Dioxide 27 mmol/L (22-30); Chloride 103 mmol/L (98-107); Direct Bilirubin 0.3 mg/dl (0.0-0.4); Estimated Creatinine Clearance 61 ml/min; Glucose 115 mg/dl (70-99); Potassium 3.8 mmol/L (3.5-5.1); Sodium 141 mmol/L (135-145); Total Bilirubin 1.2 mg/dl (0.2-1.3); Total Protein 6.7 g/dl (6.3-8.2); eGFR > 60.00
[2024-05-20 08:22] VITALS: BP 125/77
[2024-05-20 08:25] VITALS: BP 145/85
[2024-05-20] MEDS: PEPCID 20 MG PO (09:00)
[2024-05-20] MEDS: ORETIC 25 MG PO (09:11)
[2024-05-20] MEDS: COZAAR 50 MG PO (09:12)
--- NOTE | 2024-05-20 09:13 | W.PN.HOSP.TC ---
Today's Communication/Plan
-
MRCP
Assessment / Plan
Assessment / Plan
Physical exam:
General: Acutely ill. Nontoxic
HEENT: Normocephalic, Atraumatic and Moist Mucous Membranes
Respiratory: Clear to Auscultation; Negative Wheezes, Rales or Rhonchi
Cardiac: Regular Rhythm and S1/S2
GI: Soft, Tender in epigastric area and diffuse and Nondistended
Musculoskeletal: No Clubbing, No Cyanosis and No Edema
Neuro: Awake, Alert and Oriented
Psych: Calm
A/P:
Abdominal pain with elevated LFTs, concerns for choledocholithiasis and could have symptomatic cholelithiasis:
No clear evidence of cholangitis or cholecystitis for that matter-hold off on antibiotics for now.
Clear liquid diet and will advance to brat diet today
Discussed with GI today and plan for MRCP
Might or might not need surgery involvement depending on results
Stop IV fluids
Pain control
H2 magda
Plan for MRCP today.
GI consult for further evaluation-discussed with GI in person and via [place] text upon admission. Appreciated input.
Hypertensive emergency:
Blood pressure improving with current regimen. BP earlier today 125/77
He has not been compliant with his antihypertensive regimen prior to admission and RN reports patient also with some hesitancy when taking his medications.
Will continue him on losartan 50 mg daily and hydrochlorothiazide 25 mg p.o. daily
Monitor renal function and electrolytes
Will use IV hydralazine as needed
Cardiac enzymes 2 sets within normal limits
Troponin normal less than 0.012 x2
Twelve-lead EKG normal sinus rhythm at [address]-T changes concerning for ischemia or pathological Q waves.
Chest x-ray no acute chest pathology.
d/c tele
Left severe hydroureteronephrosis and absent of right kidney:
I do not believe these findings are related to his presentation-->urology agrees.
Interesting he did not know he had solitary kidney so probably a congenital abnormality.
Urology consult appreciated
Will obtain a UA and urine culture if indicated but low suspicion for urinary source of his presentation--> UA unremarkable.
Headaches:
Monitor for symptoms
DVT prophylaxis:
Lovenox SQ
CODE STATUS:
Full code
Anticipated Discharge: 24 - 48 hours
Subjective/Interval History
-
Date of Service: May 20, 2024
Patient abdominal pain improving. No fever.
Objective Data
-
Labs:
Laboratory Results
05/20/24
06:21
WBC 11.5 H
Hgb 14.5
Hct 41.1
Plt Count 363
Sodium 141
Potassium 3.8
Chloride 103
Carbon Dioxide 27
BUN 18
Creatinine 1.3
Glucose 115 H
Calcium 9.4
Total Bilirubin 1.2 D
AST 78 H
ALT 202 H
Alkaline Phosphatase 135 H
Vital Signs:
Vital Signs
Temp Pulse Resp BP Pulse Ox
97.4 F 67 14 145/85 98
05/20/24 08:25 05/20/24 08:25 05/20/24 08:25 05/20/24 08:25 05/20/24 08:25
I&O
05/19/24 05/20/24 05/21/24
06:59 06:59 06:59
Intake Total 1005 / 1005
Balance 1005 / 1005
--- NOTE | 2024-05-20 10:44 | CM ---
CM met with pt bedside
Pt resides with his spouse in a 2SH with 0STE, 15 steps to second floor
Pt is independent with his ADLs, no DMEs
Financially secure
PCP- Katey Johnston (VM left for PCP per pt request advising of admission)
Rx- [facility]
Discharge Disposition- home, no needs anticipated
--- NOTE | 2024-05-20 12:05 | W.PN.URO.CBU ---
Today's Communication / Plan
-
PER GI NO INTRVENTION INDICATED
Assessment / Plan
-
incidental finding left hydro and absent rt juan ramon [ pt was unaware ] asx creatinie wnl has lef uretal jet and prompt uptake and excretion i non obstructive urie from soltary left kidney will observe
Diagnosis
-
Date of Service: May 20, 2024
-
Patient Diagnosis:
Post Op Day:
Patient Diagnosis:unknown tiology chestand ruq pain incidenatlfidings of congenitally absent rt kidney and asx left hydo with nl creatinine
Post Op Day:
Subjective
-
NO COMPLAINTS
Objective
-
Vital Signs
Temp Pulse Resp BP Pulse Ox
97.4 F 67 14 145/85 98
05/20/24 08:25 05/20/24 09:12 05/20/24 08:25 05/20/24 09:12 05/20/24 08:25
Intake and Output
05/19/24 05/20/24 05/21/24
06:59 06:59 06:59
Intake Total 1005 / 1005
Balance 1005 / 1005
Intake:
Oral fluids 180 / 180
IV fluids (Total) 825 / 825
Other:
Number of approximated MODERATE 1
amounts of urine
Laboratory Results
05/20/24 06:21
05/20/24 06:21
Review of Systems
-
: No Symptoms
Physical Exam
-
General - well developed, well nourished, no acute distress
Chest - clear bilaterally
Abdomen - soft, non-tender, positive bowel sounds, no CVAT, no incisional pain or distention
Genitalia - normal
Rectal - normal
Skin - warm & dry with no rash
Neuro - AOx3, no motor deficits
Extremities - no clubbing, no cyanosis, no edema
Incision - clean, dry
Dressing - clean, dry, intact
Care Review
Data Reviewed
Discussed with: Hospitalist
--- NOTE | 2024-05-20 12:09 | W.PN.GI.CBS2 ---
Today's Communication / Plan
-
MRI/MRCP
Assessment / Plan
-
63-year-old male presenting with chest pain, abdominal pain and hypertension found to have elevated bilirubin of 3.6 with direct bilirubin of 2.2, AST 296, ALT 306, alk phos 150. He also does have some diffuse abdominal pain with the chest pain.
He gets his episodes of nausea, sweating, dizziness for the last few years up to 3 times a week. He is currently very nauseous now. He denies any fevers. Denies alcohol. Previously was using marijuana until very recently did not want to quantify
last use. No other drugs. He underwent a CT scan gallstones including in the neck of the pancreas. No evident biliary ductal dilation seen.
At this time, recommend MRI/MRCP for further evaluation for possible choledocholithiasis. Plan to trend LFTs. LFTs bili trended down today suspect passed stone. Suspect will benefit from eventual surgery consult as well. No evidence of infection
with normal white blood cell count and no fevers. Urology has seen the patient regarding the urologic findings on CT and no intervention needed at this time.
Currently on clears pending MRI can do trial of BRAT diet.
May benefit from head imaging defer to primary with headaches and uncontrolled BP.
Case discussed with hospitalist and RN.
Subjective
Subjective
Date of Service: May 20, 2024
ongoing nausea pt thinks related to not eating
Objective
Data Reviewed
Laboratory Data:
Laboratory Results
05/20/24 06:21
05/20/24 06:21
Laboratory Results
Total Bilirubin 1.2 mg/dl (0.2-1.3) D 05/20/24 06:21
AST 78 U/L (17-59) H 05/20/24 06:21
ALT 202 U/L (0-50) H 05/20/24 06:21
Alkaline Phosphatase 135 U/L (38-126) H 05/20/24 06:21
Lipase 298 U/L (23-300) 05/19/24 05:10
Vital Signs and I&O:
Vital Signs
Temp Pulse Resp BP Pulse Ox
97.4 F 67 14 145/85 98
05/20/24 08:25 05/20/24 09:12 05/20/24 08:25 05/20/24 09:12 05/20/24 08:25
I&O
05/19/24 05/20/24 05/21/24
06:59 06:59 06:59
Intake Total 1005 / 1005
Balance 1005 / 1005
Physical Exam
Physical Exam
GI: Non Distended and Non Tender
[2024-05-20] MEDS: ATIVAN 1 MG IV (13:46)
[2024-05-20] MEDS: NSS (PRESERVATIVE FREE) 0.5 ML IV (13:48)
[2024-05-20 15:47] VITALS: BP 122/79
[2024-05-20] MEDS: LOVENOX SC (17:04)
--- NOTE | 2024-05-20 17:42 | W.PN.UPDATE ---
Update Note
Progress Note Update
Suspect passed stone.
MRI reviewed.
Recommend gen surg consult for cholelithiasis/biliary colic.
Urology following.
Will put in dinner and make npo for tomorrow for when surgery evaluates him.
D/w hospitalist.
[2024-05-20 23:20] VITALS: BP 183/98
[2024-05-21] VITALS (9 sets, daily range): BP systolic 158–202; BP diastolic 77–128
[2024-05-21] MEDS: TORADOL 10 MG IV ×2 (02:20→15:29)
[2024-05-21] MEDS: APRESOLINE 10 MG IV ×2 (07:50→16:27)
[2024-05-21] MEDS: ZOFRAN 4 MG IV (07:51)
[2024-05-21] MEDS: PEPCID 20 MG PO (07:52)
[2024-05-21] MEDS: ORETIC 25 MG PO (07:52)
[2024-05-21] MEDS: COZAAR 50 MG PO (07:52)
[2024-05-21 08:15] LABS: ALT (SGPT) 143 U/L (0-50); AST (SGOT) 43 U/L (17-59); Albumin 4.5 g/dl (3.5-5.0); Alkaline Phosphatase 109 U/L (38-126); Blood Urea Nitrogen 24 mg/dl (9-20); Calcium 9.5 mg/dl (8.4-10.2); Carbon Dioxide 25 mmol/L (22-30); Chloride 104 mmol/L (98-107); Estimated Creatinine Clearance 72 ml/min; Glucose 111 mg/dl (70-99); Potassium 4.2 mmol/L (3.5-5.1); Sodium 140 mmol/L (135-145); Total Bilirubin 1.2 mg/dl (0.2-1.3); eGFR > 60.00
--- NOTE | 2024-05-21 08:57 | CON.GS ---
Consultation
-
Date/Time Consultation Requested: 05/21/24813
Requesting Provider: Stalin Morocho
Reason for Consultation: Cholelithiasis, passed stone
Medical History
-
Chief Complaint: nausea
History of Present Illness:
Mr. Bronson is a 63 yo male with a h/o ACL repair who initially presented for pain in the chest and epigastric area which began at home. He checked his blood pressure and noted it was significantly elevated and presented for evaluation and was
admitted for management. He notes that this pain has resolved currently but he is persistently nauseated. He does note intermittent right sided back pain intermittently in recent months as well as intermittent nausea with sweating and dizziness a
few times a week. Work up demonstrated incidental finding of solitary kidney with hydronephrosis for which urology is following as well as gallstone within the gallbladder neck with elevated LFT's. He has been afebrile since presentation.
Past Medical History
Past Medical History: HTN and Other (Solitary kidney)
Past Surgical History: Orthopedic (R ACL repair)
Social History
Tobacco: Non-Smoker
Alcohol: None
Drug: Marijuana
Family History
Family History: Reviewed & Not Pertinent
Allergies / Home Medications
Allergy/AdvReac Type Severity Reaction Status Date / Time
No Known Allergies Allergy Unverified 05/19/24 04:49
Review of Systems
-
History Source: Patient
All other systems: Negative unless noted
A 10 point review of systems was completed, and was negative except as per HPI.
Physical Exam
Vital Signs
Temp Pulse Resp BP Pulse Ox
98.3 F 74 21 188/99 98
05/21/24 07:31 05/21/24 07:31 05/21/24 07:31 05/21/24 07:50 05/21/24 07:31
05/20/24 05/21/24 05/22/24
06:59 06:59 06:59
Actual Weight 83.964 kg
Body Mass Index (BMI) 26.6
Lab Results
05/20/24 06:21
05/21/24 06:53
WBC 11.5 10^3/uL (4.8-10.8) H 05/20/24 06:21
Hgb 14.5 g/dL (13.0-18.0) 05/20/24 06:21
Hct 41.1 % (39.0-52.0) 05/20/24 06:21
Plt Count 363 10^3/uL (130-400) 05/20/24 06:21
Abs Immat Gran (auto) 0.1 10^3/uL (0-0.05) H 05/20/24 06:21
Neutrophils % 78.9 % (42.2-75.2) H 05/20/24 06:21
Physical Exam
General: Well Developed and Well Nourished
HEENT: Moist Mucous Membranes
Respiratory: Non Labored Respirations
GI: Soft, Non Tender and Non Distended
Skin: Warm
Neuro: Awake, Alert and AO x 3
Psych: Calm
Data Reviewed
-
CT Scan: Image Personally Visualized and interpreted, Report Reviewed by me, Discussed with Physician and Discussed with Patient
MRI: Image Personally Visualized and interpreted, Report Reviewed by me, Discussed with Physician and Discussed with Patient
Labs: Labs Reviewed by me, Discussed with Physician and Discussed with Patient
Old Records: Reviewed
Assessment / Plan
-
63 yo male presenting with epigastric/CP and hypertensive emergency with persistent nausea. Elevated LFT's on presentation now trending down. CT imaging demonstrating cholelithiasis with stones within the gallbladder neck with MRCP demonstrating no
choledocholithiasis but given location of stones and initial LFT elevation with quick improvement, suspected passage of stone. No significant radiographic evidence for cholecystitis and he has been afebrile although mild leukocytosis on labs
yesterday. Patient actively nauseated but in no pain. Afebrile with elevation in BP still present although improved from admission.
--Continue NPO
--Will plan OR today for laparoscopic cholecystectomy today
--Start IV zosyn perioperatively
--Medical management as per primary team
--- NOTE | 2024-05-21 09:04 | W.PN.GI.CBS2 ---
Today's Communication / Plan
-
gi signing off
Assessment / Plan
-
63-year-old male presenting with chest pain, abdominal pain and hypertension found to have elevated bilirubin of 3.6 with direct bilirubin of 2.2, AST 296, ALT 306, alk phos 150. He also does have some diffuse abdominal pain with the chest pain.
He gets his episodes of nausea, sweating, dizziness for the last few years up to 3 times a week. He is currently very nauseous now. He denies any fevers. Denies alcohol. Previously was using marijuana until very recently did not want to quantify
last use. No other drugs. He underwent a CT scan gallstones including in the neck of the pancreas. No evident biliary ductal dilation seen.
MRCP negative for choledocholithiasis. LFTs bili trended down suspect passed stone.
- Surgery consult - per patient planning CCY today
- Trend LFTs
- Diet per surgery
- Urology re: findings on MRI
- Defer to primary team may benefit from head imaging defer to primary with headaches and uncontrolled BP.
D/w hospitalist GI signing off pls call with ?s
Subjective
Subjective
Date of Service: May 21, 2024
No events overnight.
Objective
Data Reviewed
Laboratory Data:
Laboratory Results
05/20/24 06:21
05/21/24 06:53
Laboratory Results
Total Bilirubin 1.2 mg/dl (0.2-1.3) 05/21/24 06:53
AST 43 U/L (17-59) 05/21/24 06:53
ALT 143 U/L (0-50) H 05/21/24 06:53
Alkaline Phosphatase 109 U/L (38-126) 05/21/24 06:53
Lipase 298 U/L (23-300) 05/19/24 05:10
Vital Signs and I&O:
Vital Signs
Temp Pulse Resp BP Pulse Ox
98.3 F 74 21 188/99 98
05/21/24 07:31 05/21/24 07:31 05/21/24 07:31 05/21/24 07:50 05/21/24 07:31
I&O
05/20/24 05/21/24 05/22/24
06:59 06:59 06:59
Intake Total 1005 / 1005 1080 / 1080
Balance 1005 / 1005 1080 / 1080
Physical Exam
Physical Exam
GI: Non Distended and Non Tender
--- NOTE | 2024-05-21 09:15 | W.SUR.PREOP ---
Pre-Operative Surgical Note
-
I have examined this patient prior to the performance of the scheduled procedure.
The patient's condition is unchanged from the time of the current History and
Physical and the patient is able to undergo the scheduled procedure.
[2024-05-21] MEDS: ZOSYN 50 IV (09:21)
--- NOTE | 2024-05-21 14:13 | W.IMMPOSTOP ---
Surgical Immed Post Op Note
-
Primary Surgeon: Isiah Flores MD
Assisting Surgeon: None
Pre-op Diagnosis: Symptomatic cholelithiasis
Post-op Diagnosis: Same
Procedure Performed: Laparoscopic cholecystectomy with cholangiogram
Anesthesia Type: General
Specimen / Cultures: Gallbladder and contents
Estimated Blood Loss: 3 cc
Complications: None
Operative Findings: Fairly normal appearing gallbladder, fatty cystic triangle. Critical view of safety obtained prior to cholangiogram which demonstrated no distal filling defects and normal biliary anatomy. The duct was milked back for several
small black oxalate stones that were suctioned out. Duct ligated with 0 PDS Endoloop.
POST OP PLAN:
Imaging: None
Labs: Routine AM
Diet: Advance to low-fat as tolerated
Analgesia: Tylenol 650mg q6 Cheryl, Rowan 5mg q6 PRN, Dilaudid 0.5mg q2h PRN
Neuro/vascular checks: q4h
AC/AP: Hold Therapeutic AC, Ok for DVT PPx
Activity: Ad Sophie
Wound/Incisions/Drains: Routine
Abx: None
Dispo: RNF, anticipate discharge home today versus tomorrow pending clinical course and control of his headaches and blood pressure.
--- NOTE | 2024-05-21 14:20 | OR.RPT ---
Operative Report
Operative Report
Patient Name: Gonzalo Bronson
: 1960
Date of Operation: 05/21/2024
Preoperative Diagnosis: Symptomatic cholelithiasis
Postoperative Diagnosis: Same
Procedure(s):
Laparoscopic Cholecystectomy with Cholangiogram
Surgeon(s):
Dr. Flores
Litigation Examiner(s):
BETH Crow
Anesthesia: General
Estimated Blood Loss: 3 cc
Urine Output: None
Drains/Lines/Implants: None
Specimens:
1. Gallbladder and contents
HPI/Surgical Indications:
This is a 63-year-old male who presents with a 2-day history of epigastric abdominal/chest pain, was found to have elevated LFTs and CT scan with multiple gallstones in the neck of the gallbladder. Subsequent MRCP noted no choledocholithiasis and
his bilirubin spontaneously started to normalize concerning for choledocholithiasis that passed spontaneously. Exam, labs and imaging are consistent with symptomatic cholelithiasis and possible choledocholithiasis. Risks/Benefits/Alternatives were
discussed at length, and the patient agreed to proceed with surgery.
Operative Findings: Fairly normal appearing gallbladder, fatty cystic triangle. Critical view of safety obtained prior to cholangiogram which demonstrated no distal filling defects and normal biliary anatomy. The duct was milked back for several
small black oxalate stones that were suctioned out. Duct ligated with 0 PDS Endoloop.
Procedure Description:
The patient was brought to the Operating Room and placed in the supine position with one arm tucked. Following uneventful induction of general endotracheal anesthesia, an orogastric tube was placed. The abdomen was prepped and draped in the usual
sterile fashion. A timeout was performed confirming the procedure, consent, and that IV antibiotics were infused and sequential compression devices were confirmed to be on. The abdomen was entered using an infraumbilical open Ronnie technique with a
12 mm balloon-tipped trocar. Pneumoperitoneum to 15 mmHg pressure was obtained without difficulty and we confirmed that no injury had occurred during our entry. The patient was positioned in reverse Trendelenberg and rotated with the right side up
slightly. Three (3) 5mm trocars were then placed along the right subcostal margin. A locking grasping forceps was placed on the fundus of the gallbladder where it was then retracted cephalad and to the right. Using appropriate grasping instruments,
the peritoneum overlying the triangle of Calot was incised and extended superiorly on both the anterior and posterior gallbladder wall. The infundibulum was dissected off the cystic plate. The cystic triangle was dissected until a critical view of
safety was achieved. The cystic artery was medialized, dissected and controlled with 2 proximal clips and 1 distal. The cystic duct/gallbladder junction in turn was identified, dissected circumferentially and a clip was placed. A ductotomy was made
and a cholangiocatheter on an Cervantes clamp was inserted into the cystic duct. Prior to this, a few small calcium oxalate stone debris was milked back into the field and suctioned up. A C-arm was draped and brought into the field. An intra-operative
cholangiogram was performed and was noted to have:
No filling defects in the biliary tree
Mild biliary dilation
Brisk flow of contrast into the duodenum
Normal biliary anatomy
The catheter was then removed and the cystic duct was controlled with a clip followed by a 0 PDS Endoloop. After ensuring both the artery and duct were divided, the gallbladder was freed from the liver using electrocautery. There was some minimal
spillage of bile and small stones from our ductotomy that was all removed/suctioned up otherwise there was no gross spillage. The gallbladder bed was inspected and excellent hemostasis was obtained. The gallbladder was extracted through the 12 mm
trocar site using an endocatch bag. The abdomen was again irrigated and excellent hemostasis was assured. All remaining trocars were then removed and the pneumoperitoneum was evacuated. The 12 mm trocar site was closed using 0 PDS suture. All
trocar sites were closed at the skin level using 4-0 Monocryl followed by Dermabond. Overall, the patient tolerated the procedure well and was taken to the Recovery Room postoperatively in stable condition.
I was the attending physician and performed the procedure with assistance from the PA above.The assistance of BETH Crow was required due to the complexity of the procedure. During the procedure Ольга assisted with retraction, resection, and
closure of the wound. I was present for all portions of the case
Isiah Flores MD
--- NOTE | 2024-05-21 15:00 | PTCARENOTE ---
Pt received from the PACU via bed. Transport was w/o incident. Pt is AAOx3, HRR, lungs are clear, resp. easy. Pt reports abd pain 6/10 on pain scale. Will medicate for pain as ordered. Pt denies nausea at present. VS: 97.5-69-16-164/92, pulse ox
100%RA. Will monitor Pt's BP closely and medicate w/ PRN hydralizine as ordered. Pt's abd with 4 Lap sites well approx. w/ surgi glue. No drainage noted. Pt instructed on plan of care. Pt verbalized understanding of instructions, call montes is within
reach.
--- NOTE | 2024-05-21 16:23 | W.PN.URO.CBU ---
Today's Communication / Plan
-
per general surgery
Assessment / Plan
-
incidental finding left hydro and absent rt juan ramon [ pt was unaware ] asx creatinie wnl has lef uretal jet and prompt uptake and excretion i non obstructive urie from soltary left kidney will observe
Diagnosis
-
Date of Service: May 21, 2024
-
Patient Diagnosis:
Post Op Day:
Patient Diagnosis:
Post Op Day:
Patient Diagnosis:unknown tiology chestand ruq pain incidenatlfidings of congenitally absent rt kidney and asx left hydo with nl creatinine
Post Op Day:
Subjective
-
no gu sxs
Objective
-
Vital Signs
Temp Pulse Resp BP Pulse Ox
97.3 F 76 16 202/128 95
05/21/24 16:00 05/21/24 16:00 05/21/24 16:00 05/21/24 16:00 05/21/24 16:00
Intake and Output
05/20/24 05/21/24 05/22/24
06:59 06:59 06:59
Intake Total 1005 / 1005 1080 / 1080
Balance 1005 / 1005 1080 / 1080
Intake:
Oral fluids 180 / 180 1080 / 1080
IV fluids (Total) 825 / 825
Other:
Number of approximated MODERATE 1 2
amounts of urine
Number of approximated LARGE 4
amounts of urine
Laboratory Results
05/20/24 06:21
05/21/24 06:53
Review of Systems
-
: No Symptoms
Physical Exam
-
General - well developed, well nourished, no acute distress
Chest - clear bilaterally
Abdomen - soft, non-tender, positive bowel sounds, no CVAT, no incisional pain or distention
Genitalia - normal
Rectal - normal
Skin - warm & dry with no rash
Neuro - AOx3, no motor deficits
Extremities - no clubbing, no cyanosis, no edema
Incision - clean, dry
Dressing - clean, dry, intact
[2024-05-21] MEDS: PROCARDIA XL (EXTENDED RELEASE) 30 MG PO (16:29)
[2024-05-21] MEDS: LOVENOX 40 MG SC (17:38)
[2024-05-21] MEDS: COMPAZINE 10 MG IV (17:42)
[2024-05-21 18:35] LABS: Hepatitis B Surface Antigen Negative (Negative)
[2024-05-21 18:52] LABS: Hepatitis B Core Ab, Total Negative (Negative); Hepatitis B Surface Antibody Negative; Hepatitis C Antibody Negative (Negative)
[2024-05-21 19:18] LABS: Hepatitis A Antibody, Total Negative (Negative)
[2024-05-21] MEDS: APRESOLINE 5 MG PO (21:40)
[2024-05-22] MEDS: APRESOLINE 10 MG IV ×2 (00:04→07:28)
[2024-05-22] MEDS: FLUSH (NSS) 2 FLUSH IV (00:05)
[2024-05-22] MEDS: COMPAZINE 10 MG IV (00:07)
[2024-05-22 03:40] VITALS: BP 131/62
[2024-05-22 06:52] LABS: Hematocrit 41.8 % (39.0-52.0); Hemoglobin 14.7 g/dL (13.0-18.0); Mean Corp Hgb Conc. 35.2 g/dL (33.0-37.0); Mean Corpuscular Volume 88.2 fL (80.0-94.0); Mean Platelet Volume 9.7 fL (7.4-10.4); Platelet Count 378 10^3/uL (130-400); Red Blood Cell Count 4.74 10^6/uL (4.70-6.10); Red Cell Dist. Width 13.1 % (11.5-14.5); White Blood Cell Count 15.6 10^3/uL (4.8-10.8)
[2024-05-22 06:55] LABS: ALT (SGPT) 120 U/L (0-50); AST (SGOT) 48 U/L (17-59); Albumin 4.1 g/dl (3.5-5.0); Alkaline Phosphatase 102 U/L (38-126); Blood Urea Nitrogen 24 mg/dl (9-20); Calcium 9.2 mg/dl (8.4-10.2); Carbon Dioxide 26 mmol/L (22-30); Chloride 101 mmol/L (98-107); Estimated Creatinine Clearance 66 ml/min; Glucose 100 mg/dl (70-99); Potassium 3.9 mmol/L (3.5-5.1); Sodium 138 mmol/L (135-145); Total Bilirubin 1.2 mg/dl (0.2-1.3); Total Protein 6.6 g/dl (6.3-8.2); eGFR > 60.00
[2024-05-22] MEDS: PEPCID 20 MG PO (07:25)
[2024-05-22] MEDS: ORETIC 25 MG PO (07:25)
[2024-05-22 07:40] VITALS: BP 152/98
--- NOTE | 2024-05-22 07:40 | W.PN.GS2 ---
Today's Communication / Plan
-
-- LFD
-- Pain control: Tylenol, Toradol, Oxycodone
-- DC instructions updated
-- F/u Dr. Flores as outpatient
-- Please call with questions or concerns
Assessment / Plan
-
Patient is a 63 yo M POD#1 s/p laparoscopic cholecystectomy with IOC
Recovering well. Post-op issues with acute on chronic HTN.
-- LFD
-- Pain control: Tylenol, Toradol, Oxycodone
-- DVT: Lovenox
-- DC instructions updated
-- F/u Dr. Flores as outpatient
-- Please call with questions or concerns
Subjective Data
-
Date of Service: May 22, 2024
Reports soreness with ambulation. No nausea or emesis. No fevers.
Objective Data
-
Intake and Output
05/21/24 05/22/24 05/23/24
06:59 06:59 06:59
Intake Total 1080 / 1080 720 / 720
Balance 1080 / 1080 720 / 720
Intake:
Oral fluids 1080 / 1080 720 / 720
Other:
Number of approximated MODERATE 2 1
amounts of urine
Number of approximated LARGE 4
amounts of urine
Vital Signs
Temp Pulse Resp BP Pulse Ox
97.9 F 87 17 178/109 98
05/22/24 03:40 05/22/24 03:40 05/22/24 03:40 05/22/24 07:28 05/22/24 03:40
Lab Results
05/22/24 04:48
05/22/24 04:48
Calcium 9.2 mg/dl (8.4-10.2) 05/22/24 04:48
Total Bilirubin 1.2 mg/dl (0.2-1.3) 05/22/24 04:48
Direct Bilirubin 0.3 mg/dl (0.0-0.4) 05/20/24 06:21
AST 48 U/L (17-59) 05/22/24 04:48
ALT 120 U/L (0-50) H 05/22/24 04:48
Alkaline Phosphatase 102 U/L (38-126) 05/22/24 04:48
Total Protein 6.6 g/dl (6.3-8.2) 05/22/24 04:48
Albumin 4.1 g/dl (3.5-5.0) 05/22/24 04:48
Physical Exam
-
Gen: NAD
Abd: soft, mild tenderness, ND, non-peritoneal, incisions c/d/i - no erythema, ecchymosis or drainage
[2024-05-22] MEDS: COREG 6.25 MG PO (08:11)
[2024-05-22] MEDS: PROCARDIA XL (EXTENDED RELEASE) 60 MG PO (08:11)
--- NOTE | 2024-05-22 11:11 | CM ---
Patient seen at bedside.
Discussed role of case management.
No needs identified.
PLAN: Home, no needs.
[2024-05-22 11:30] VITALS: BP 158/91
[2024-05-22] MEDS: TRANDATE 10 MG IV (12:13)
[2024-05-22 12:39] VITALS: BP 117/80
--- NOTE | 2024-05-22 12:49 | W.PN.HOSP.TC ---
Today's Communication/Plan
-
d/c home
Assessment / Plan
Assessment / Plan
Possible passed CBD stone
Cholelithiasis
Elevated LFT - improving
-No clear evidence of cholangitis or cholecystitis for that matter-hold off on antibiotics for now.
-MRCP did not show any CBD stone
-General Surgery evaluated based on clinical concern of possible past gallstone
-Patient underwent laparoscopic cholecystectomy yesterday
-Cleared by GS today for discharge
Hypertensive emergency:
Uncontrolled HTN
-Patient blood pressure unable to be controlled by IV medication
-Started on oral Procardia, dose increased today with added quarter
-Remains significantly uncontrolled still, patient wanting to follow-up with PCP for further dose adjust
Left severe hydroureteronephrosis and absent of right kidney:
-Incidental finding of hydronephrosis which are possibly chronic in nature
-Urology consult appreciated
Headaches:
-likely from uncontrolled HTN
-improved
DVT prophylaxis:Lovenox SQ
CODE STATUS:Full code
More than 30 minutes spent in discharge including
Final examination of the patient
Summarizing hospital stay
Instructions for continuing care to all relevant caregivers
Preparation of discharge records, prescriptions, and referral forms
Total time spent (in minutes): 38 mins
Anticipated Discharge: Today
Subjective/Interval History
-
Date of Service: May 22, 2024
Blood pressure remains elevated
Denies of having any headache
no significant abd pain/nausea/vomiting
Objective Data
-
Labs:
Laboratory Results
05/22/24
04:48
WBC 15.6 H
Hgb 14.7
Hct 41.8
Plt Count 378
Sodium 138
Potassium 3.9
Chloride 101
Carbon Dioxide 26
BUN 24 H
Creatinine 1.2
Glucose 100 H
Calcium 9.2
Total Bilirubin 1.2
AST 48
ALT 120 H
Alkaline Phosphatase 102
Vital Signs:
Vital Signs
Temp Pulse Resp BP Pulse Ox
97.9 F 83 18 117/80 99
05/22/24 11:30 05/22/24 12:39 05/22/24 11:30 05/22/24 12:39 05/22/24 11:30
I&O
05/21/24 05/22/24 05/23/24
06:59 06:59 06:59
Intake Total 1080 / 1080 720 / 720
Balance 1080 / 1080 720 / 720
Review of Systems
-
Respiratory: Reports No Symptoms
Cardiac: Reports No Symptoms
Abdomen/GI: Reports No Symptoms
Physical Exam
-
General: No Apparent Distress and Comfortable
HEENT: Negative Oxygen
Respiratory: Clear to Auscultation
Cardiac: Regular Rhythm and S1/S2; Negative Murmur or Rub
GI: Soft, Nontender, Nondistended and Normal Bowel Sounds
Musculoskeletal: No Edema
Neuro: Awake, Alert, Oriented, No Motor Deficits and Nonfocal/Grossly Intact
Psych: Calm
--- NOTE | 2024-05-22 12:54 | W.PN.UPDATE ---
Update Note
Progress Note Update
This is a delayed entry for service provided on 05/21/2024
Patient having significant headache. Blood pressure remains uncontrolled
No abdominal pain nausea vomiting
HEENT: No pallor, cyanosis, or jaundice. Throat clear.
NECK: Supple. No JVD.
RESPIRATORY: Lungs clear to auscultation.
CVS: S1, S2 normal. RRR. No murmur, rub or gallop.
ABDOMEN: Soft, non-tender. No distension. BS+/normal.
EXTREMITIES: No peripheral cyanosis or edema.
GROUP EXERCISE INSTRUCTOR: AOx3. No focal deficits.
Possible passed CBD stone
Cholelithiasis
Elevated LFT - improving
-No clear evidence of cholangitis or cholecystitis for that matter-hold off on antibiotics for now.
-MRCP did not show any CBD stone
-General Surgery evaluated based on clinical concern of possible past gallstone
-Patient going for laparoscopic cholecystectomy today
Hypertensive emergency:
Uncontrolled HTN
-Patient blood pressure unable to be controlled by IV medication
-Blood pressure uncontrolled with IV hydralazine, starting oral Procardia. Patient hesitant to take losartan with solitary kidney
Left severe hydroureteronephrosis and absent of right kidney:
-Incidental finding of hydronephrosis which are possibly chronic in nature
-Urology consult appreciated
Headaches:
-likely from uncontrolled HTN
-Provide timolol/IV Compazine for symptomatic
DVT prophylaxis:Lovenox SQ
CODE STATUS:Full code
--- NOTE | 2024-05-23 17:35 | W.DCSUMMARY ---
Discharge Summary
Discharge Data
Date of Admission: 05/19/24
Date of Discharge: 05/22/24
-
Pending Results: No
Hospital Course
Discharging Physician : Dr Stalin Morocho
Disposition : To home
Primary care physician : Dr Katey Johnston
Principal Discharge diagnosis :
Passed biliary duct stone
Cholelithiasis
Hypertensive emergency
Left severe hydroureteronephrosis
Congenitally absent right kidney
Headache
Chronic Discharge diagnosis :
None
Hospital Course :
Patient is a 63-year-old male with above-mentioned past medical history came to ER for having new onset of right upper quadrant/epigastric pain. Patient checked his blood pressure at home and was noted to having significantly high blood pressure
that monitor was reading as error. In ER patient was noted to having systolic blood pressure in range of 200+ and was felt to having hypertensive emergency. Troponins were checked and were minimally elevated only. Patient required IV medication.
Patient was also having issues of headache likely due to uncontrolled blood pressure. Over next 48 hours patient was required to be started on blood pressure medication with which patient had some improvement in headache as well. At discharge
patient instructed to follow-up with primary care physician as will require further dose escalation based on response.
For patient abdominal pain patient had CT abdomen pelvis which showed cholelithiasis. Liver enzymes were elevated as well. GI and general surgery was involved in care. Patient underwent an MRI/MRCP which did not show any choledocholithiasis, did
show some dilated biliary duct. Patient LFTs were spontaneously improving and there was concern of possible passed gallstone. General surgery took patient for an elective laparoscopic cholecystectomy which was uneventful. Patient was discharged
home after this with follow-up with PCP in office.
Patient was also noted to having incidental left severe hydroureteronephrosis. Congenitally absent right kidney as well which patient was unaware about. Urology evaluated patient and imaging finding felt to be chronic in nature. Patient will
require periodic urology follow-up. No further testing/intervention required from urology perspective this admission
Important imaging findings :
None
Procedure findings :
None
Discharge Plan
-
Patient Disposition: Home (Routine Discharge)
Discharge Diagnosis/Procedures: Choledocholithiasis, s/p lap antonio, congenitally absent right kidney
Condition: Fair
Diet: As tolerated
Activity: No strenuous activity
Bathing Restrictions: OK to Shower
Activity Restrictions/Additional Instructions:
Instructions following Laparoscopic cholecystectomy
Please call [phone] if you have any questions or concerns after your surgery.
Wound Care:
Your incisions are covered with skin glue which will come off on it�s own in 5-10 days.
It is ok to shower the day after your surgery. Do not scrub the incisions, let soap and water wash over them and pat dry.
� Bruising around your incisions is normal.
� Using ice packs will help minimize this swelling.
� No swimming or soaking incisions for 1 week.
� Your stitches will dissolve and do not need to be removed.
Urinary retention:
If you are unable to urinate 6-8 hours after your surgery, please call [phone] to discuss further management.
Activity:
No heavy lifting more than 15 pounds for the next 3 weeks, then you may gradually lift heavier objects as tolerated by discomfort. Otherwise activity as tolerated by your comfort level.
Pain Management:
Use Tylenol, ibuprofen and ice packs to treat your pain.
� You may take 650 milligrams of Tylenol (Max 3 grams per day) every 6 hours, and 600 mg of ibuprofen also every 6 hours. (you can alternate them every 3 hours)
� You may use an ice pack to your incision as needed.
� If you still have pain not controlled by these measures, take your prescription pain medication as prescribed.
Medications:
You may resume your home medications.
Bowel Medications:
Prescription pain medication can make you constipated. If you take this medication, also take colace 100 mg twice daily (this is over the counter). If this is not sufficient, you may take Miralax (polyethylene glycol) to help move your bowels.
Diet:
After your procedure, there are no dietary restrictions. You may notice loose stools for up to 4 weeks after surgery with fatty meals, if this is the case you may have to adjust your diet as needed.
Driving restrictions:
No driving if you are taking prescription pain medication or if you think your normal reaction time and attentiveness has been slowed by your surgery.
Things to Look out for:
Worsening Abdominal pain, redness or drainage from incision
Call Doctor for:
Please call if you notice worsening redness or drainage from incision(s) lasting longer than 5 days after your surgery, any foul-smelling drainage from the incision, pain not controlled by pain medications, persistent nausea and vomiting, or for any
fevers greater than 101.3 F. The number for questions/concerns is [phone]
Follow-up:
Follow-up appointment will be scheduled with your surgeon in 3-4 weeks. Please call prior to your appointment if you have any questions or concerns. [phone]
Referrals:
Isiah Flores MD [Active] - in two to four weeks
Katey Johnston CRNP [Family Provider] - in one week
Prescriptions:
New
carvedilol 6.25 mg Tablet
6.25 mg PO BID Qty: 60 2RF
hydrochlorothiazide 25 mg Tablet
25 mg PO DAILY Qty: 30 2RF
nifedipine 60 mg Tablet Extended Release
60 mg PO BID Qty: 60 2RF
Discharge Orders:
Discharge Patient (As Directed); Ordered 05/22/24
Ordered By: Stalin Morocho
Discharge Date and Time
Discharge Date/Time: 05/22/24 12:50
Print Language: HONDURAN
== END 2024-05-22 12:50 | disposition home or self-care (01) | DRG 418 ==
LOC: 2 SOUTH 08:22
PROVIDERS: Nurse Practitioner Family; ADMITTING PHYSICIAN Hospitalist; ATTENDING PHYSICIAN Hospitalist; CONSULT PHYSICIAN Internal Medicine Gastroenterology; CONSULT PHYSICIAN Specialist; CONSULT PHYSICIAN Surgery; EMERGENCY PHYSICIAN Emergency Medicine; FAMILY PHYSICIAN Registered Nurse
PROC: 0FT44ZZ Resection of Gallbladder, Percutaneous Endoscopic Approach (ICD-10-PCS; 2024-05-21)
DX: K80.20 Calculus of gallbladder without cholecystitis without obstruction (principal); I16.1 Hypertensive emergency; N13.30 Unspecified hydronephrosis; Q60.0 Renal agenesis, unilateral; I10 Essential (primary) hypertension; N28.82 Megaloureter; R79.89 Other specified abnormal findings of blood chemistry; Z79.899 Other long term (current) drug therapy
CPT/HCPCS: 88304; 71046; 74177; 74183; 74300; 76000; 80053; 81003; 82248; 83690; 84484; 85025; 85027; 86704; 86706; 86708; 86709; 86803; 87086; 87340; 93005; 96374; 99285; A9575; Q9967